=== PATIENT | male | born 1930 | race Caucasian/White ===

== ENCOUNTER → 2016-10-01 | Outpatient (CLI) | payer MEDICARE, OTHER ==
--- OUTSIDE RECORDS SUMMARY | 2016-10-01 09:11 | XMS REPORT | Continuity of Care Document ---
Author Author [facility] Organization [facility] Address Unknown Phone Unavailable Care Team Providers Care Laminating Machine Offbearer Name Role Phone Chan Watson PCP [phone] Source Comments Some departments are not documenting in the electronic medical record. If you do not see the information that you expected, contact Release of Information in the Health Information Management department at [phone] for further assistance in locating additional records.[facility] Active Allergies and Adverse Reactions Allergen Noted Date Severity Reactions Comments Bactrim 07/11/2016 Low VOMITING Ciprofloxacin 07/12/2016 Low VOMITING Current Medications Prescription Sig. Disp. Refills Start End Date Status Date levothyroxine (SYNTHROID) Take 25 mcg by mouth Active 25 mcg tablet daily 30 minutes before breakfast. finasteride (PROSCAR) 5 Take 5 mg by mouth daily. Active mg tablet insulin glargine (TOUJEO Inject 25 Units under the Active SOLOSTAR) 300 unit/mL skin daily. (1.5 mL) injectable insulin aspart (NOVOLOG Inject 2 Units under the Active FLEXPEN) 100 unit/mL skin daily. injection PEN vitamins, multi Take 1 Tab by mouth Active w/minerals 27-0.4 mg tab daily. cranberry fruit Chew 1 Tab by mouth twice Active concentrate (AZO daily. CRANBERRY) 250 mg chew aspirin 81 mg chewable Chew 81 mg by mouth Active tablet daily. Take with food. rOPINIRole (REQUIP) 2 mg Take 2 mg by mouth at Active tablet bedtime daily. tamsulosin (FLOMAX) 0.4 Take 0.4 mg by mouth Active mg capsule daily. Do not crush, chew or open capsules. Take 30 minutes following the same meal each day. simvastatin (ZOCOR) 40 mg Take 40 mg by mouth at Active tablet bedtime daily. acetaminophen/codeine Take 1 Tab by mouth at Active (TYLENOL #3) 300/30 mg bedtime as needed for tablet Pain. Max of 4,000 mg of acetaminophen in 24 hours. prednisone (DELTASONE) 50 Take 2 Tabs by mouth 2 Tab 0 07/24/20 Active mg tablet every 24 hours. 16 allopurinol (ZYLOPRIM) Take 1 Tab by mouth 30 Tab 0 07/23/20 Active 300 mg tablet daily. Take with food. 16 polyethylene glycol 3350 Take 2 Packets by mouth 12 Each 07/23/20 Active (MIRALAX) 17 g packet daily as needed. 16 senna/docusate Take 2 Tabs by mouth 0 07/23/20 Active (SENOKOT-S) 8.6/50 mg daily. [address] Take 1 Tab by mouth 30 Tab 0 07/23/20 Active (PROTONIX) 40 mg tablet daily. 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) 07/11/2016 Hypothyroid 07/11/2016 H/O urinary retention 07/11/2016 Urinary tract infection without hematuria 07/11/2016 Hydronephrosis with infection 07/11/2016 Diarrhea 07/11/2016 Most Recent Encounters Date Type Specialty Providers Description 08/02/2016 Documentation Oncology Ada Gonzalez DO 07/24/2016 [facility] Oncology Adeel Ruiz MD Encounter 07/19/2016 [facility] Radiology Vanita Stern MD Encounter Denny Flores RN Lind, Ashley Lemons, Steven, MD 07/17/2016 [facility] Radiology Monica Mccarthy APRN Canceled (Other) Encounter 07/17/2016 [facility] Radiology Vanita Stern MD Encounter Sj Weinstein MD Couch, Heather A, RN 07/15/2016 Screening Form 07/11/2016 [facility] Hematology and Oncology Sophia Botello MD Retroperitoneal mass - Encounter Britta Pond MD 07/23/2016 Eyad Mckoy MD Zelalem, Peniel, MD Yacoub, Abdulraheem, MD Fleming, Allan, MD Social History Tobacco Use Types Packs/Day Years Used Date Former Smoker Alcohol Use Drinks/Week oz/Week Comments No Last Filed Vital Signs Vital Sign Reading Time Taken Blood Pressure 139/73 07/24/2016 9:54 AM TELEGRAPH PRINTER MECHANIC Pulse 85 07/24/2016 9:54 AM TELEGRAPH PRINTER MECHANIC Temperature 36.4 C (97.5 F) 07/24/2016 9:54 AM TELEGRAPH PRINTER MECHANIC Respiratory Rate 14 07/24/2016 9:54 AM TELEGRAPH PRINTER MECHANIC Height 1.778 m (5' 10") 07/18/2016 2:48 PM TELEGRAPH PRINTER MECHANIC Weight 81 kg (178 lb 9.2 oz) 07/18/2016 2:48 PM TELEGRAPH PRINTER MECHANIC Body Mass Index 25.62 07/18/2016 2:48 PM TELEGRAPH PRINTER MECHANIC Oxygen Saturation 98% 07/24/2016 9:54 AM TELEGRAPH PRINTER MECHANIC Plan of Care Health Maintenance Due Date Last Done Comments Physical (Comprehensive) 02/10/1939 Exam Pertussis Vaccine 02/10/1943 Tetanus Vaccine 02/10/1949 Shingles Vaccine 1992 Prevnar/Pneumovax (#1) 02/10/1997 Influenza Vaccine 03/28/2016 Procedures from Last 3 Months Procedure Name Priority Date/Time Associated Diagnosis Comments ECG-SCAN 07/25/2016 Results for this 1:58 PM TELEGRAPH PRINTER MECHANIC procedure are in the results section. CONSULT IV THERAPY TEAM Routine 07/20/2016 3:42 PM TELEGRAPH PRINTER MECHANIC ECG UNCONFIRMED-SCAN 07/12/2016 Results for this 10:13 AM TELEGRAPH PRINTER MECHANIC procedure are in the results section. Results from Last 3 Months CYTOGENETICS SCAN (07/26/2016 3:51 PM) Narrative Ordered by an unspecified provider. ECG-SCAN (07/25/2016 1:58 PM) Narrative Ordered by an unspecified provider. POC GLUCOSE (07/24/2016 10:01 AM)Only the most recent of 64 results within the time period is included. Component Value Range Glucose, POC 246 (H) 70-100 MG/DL PHOSPHORUS (07/23/2016 2:45 AM)Only the most recent of 12 results within the time period is included. Component Value Range Phosphorus 3.1 2.0-4.0 MG/DL Specimen Blood LDH-LACTATE DEHYDROGENASE (07/23/2016 2:45 AM)Only the most recent of 12 results within the time period is included. Component Value Range Lactate Dehydrogenase 406 (H) 100-210 U/L Specimen Blood URIC ACID (07/23/2016 2:45 AM)Only the most recent of 12 results within the time period is included. Component Value Range Uric Acid 3.8 (L) 4.0-8.0 MG/DL Specimen Blood COMPREHENSIVE METABOLIC PANEL (07/23/2016 2:45 AM)Only the most recent of 13 results within the time period is included. Component Value Range Sodium 134 (L) 137-147 MMOL/L Potassium 4.1 3.5-5.1 MMOL/L Chloride 100 98-110 MMOL/L Glucose 125 (H) 70-100 MG/DL Blood Urea Nitrogen 37 (H) 7-25 MG/DL Creatinine 1.51 (H) 0.4-1.24 MG/DL Calcium 8.9 8.5-10.6 MG/DL Total Protein 5.9 (L) 6.0-8.0 G/DL Total Bilirubin 0.3 0.3-1.2 MG/DL Albumin 3.0 (L) 3.5-5.0 G/DL Alk Phosphatase 51 25-110 U/L AST (SGOT) 17 7-40 U/L CO2 28 21-30 MMOL/L ALT (SGPT) 11 7-56 U/L Anion Gap 6 3-12 eGFR Non 44 (L)Comment: >60 mL/min The eGFR is not validated for use in drug dosing adjustments. Continue to use estimated creatinine clearance per dosing reference text. Please contact the Clinical Pharmacist for questions. eGFR 54 (L)Comment: >60 mL/min The eGFR is not validated for use in drug dosing adjustments. Continue to use estimated creatinine clearance per dosing reference text. Please contact the Clinical Pharmacist for questions. Specimen Blood CBC AND DIFF (07/23/2016 2:45 AM)Only the most recent of 13 results within the time period is included. Component Value Range White Blood Cells 11.1 (H) 4.5-11.0 K/UL RBC 3.30 (L) 4.4-5.5 M/UL Hemoglobin 9.9 (L) 13.5-16.5 GM/DL Hematocrit 29.5 (L) 40-50 % MCV 89.3 80-100 FL MCH 30.1 26-34 PG MCHC 33.7 32.0-36.0 G/DL RDW 13.9 11-15 % Platelet Count 320 150-400 K/UL MPV 7.3 7-11 FL Neutrophils 93 (H) 41-77 % Lymphocytes 4 (L) 24-44 % Monocytes 3 (L) 4-12 % Eosinophils 0 0-5 % Basophils 0 0-2 % Absolute Neutrophil Count 10.30 (H) 1.8-7.0 K/UL Absolute Lymph Count 0.40 (L) 1.0-4.8 K/UL Absolute Monocyte Count 0.40 0-0.80 K/UL Absolute Eosinophil Count 0.00 0-0.45 K/UL Absolute Basophil Count 0.00 0-0.20 K/UL Specimen Blood VRE SCREEN (07/22/2016 9:30 PM) Component Value Range Battery Name VRE SCREEN Specimen Description PERIRECTAL SWAB Special Requests NONE Culture NO VRE ISOLATED Report Status FINAL 07/24/2016 Specimen Perirectal Swab MAGNESIUM (07/20/2016 4:24 AM)Only the most recent of 10 results within the time period is included. Component Value Range Magnesium 2.0 1.6-2.6 mg/dL Specimen Blood IR CENTRAL VENOUS CATHETER (07/19/2016 5:01 PM) Impressions IMPRESSION:Successful image guided placement of a right internal jugular vein chest port as described above. Approved by Earl Bonds M.D. on 07/19/2016 7:07 PM By my electronic signature, I attest that I have personally reviewed the images for this examination and formulated the interpretations and opinions expressed in this report Finalized by Jose Miguel Case M.D. on 07/19/2016 7:09 PM. Dictated by Earl Bonds M.D. on 07/19/2016 7:06 PM. 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 The risks, benefits, and alternatives to the procedure and sedation were explained, and written informed consent obtained. With patient in the supine position, the patient's right neck and upper chest were prepped and draped in the usual sterile fashion. Ultrasound of the right internal jugular vein was performed demonstrating patency.The skin and subcutaneous tissues overlying the vein were infiltrated with 2% Lidocaine without epinephrine. Under ultrasound guidance, the right internal jugular vein was accessed with a micropuncture needle. Needle entering the vessel was documented and an ultrasound imaged was saved and sent to PACS.A 0.018 wire was advanced through the needle into the vein. The needle was exchanged for a 5 Mauritian coaxial dilator. Attention was turned to the creation of a subcutaneous pocket and tunnel.2% Lidocaine with epinephrine were infiltrated on the chest wall along a tract caudal and lateral to the initial venotomy site.An incision was made and a pocket was bluntly dissected. The pocket was copiously irrigated with sterile normal saline.The tunneling tool was passed and the catheter was pulled through the initial venotomy site. The catheter was cut to length and attached to the port reservoir. The introducer of the coaxial catheter was removed and a 0.035" Amplatz wire was passed into the IVC. The micropuncture sheath was exchanged for a peel a way. The catheter was advanced through the sheath and positioned centrally using fluoroscopy.The sheath was removed. The venotomy site was closed with Dermabond.The pocket was closed with three interrupted deep sutures with 2-0 Vicryl followed by Dermabond. The patient tolerated the procedure well and remained in stable condition throughout the stay in the angiography suite.The catheter port was flushed, heparinized, and a sterile dressing was applied. FINDINGS: 1. Patent right internal jugular vein by ultrasound.Needle entry documented , and an ultrasound image was saved to PACS. 2. Catheter tip is appropriately placed in the proximal right atrium. 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 Overlapping portions were non leslie and I was immediately available. I interpret the critical and leslie portion of this procedure to have been needle access. The risks, benefits, and alternatives to the procedure and sedation were explained, and written informed consent obtained. With patient in the supine position, the patient's right neck and upper chest were prepped and draped in the usual sterile fashion. Ultrasound of the right internal jugular vein was performed demonstrating patency. The skin and subcutaneous tissues overlying the vein were infiltrated with 2% Lidocaine without epinephrine. Under ultrasound guidance, the right internal jugular vein was accessed with a micropuncture needle. Needle entering the vessel was documented and an ultrasound imaged was saved and sent to PACS. A 0.018 wire was advanced through the needle into the vein. The needle was exchanged for a 5 Mauritian coaxial dilator. Attention was turned to the creation of a subcutaneous pocket and tunnel. 2% Lidocaine with epinephrine were infiltrated on the chest wall along a tract caudal and lateral to the initial venotomy site. An incision was made and a pocket was bluntly dissected. The pocket was copiously irrigated with sterile normal saline. The tunneling tool was passed and the catheter was pulled through the initial venotomy site. The catheter was cut to length and attached to the port reservoir. The introducer of the coaxial catheter was removed and a 0.035" Amplatz wire was passed into the IVC. The micropuncture sheath was exchanged for a peel a way. The catheter was advanced through the sheath and positioned centrally using fluoroscopy. The sheath was removed. The venotomy site was closed with Dermabond. The pocket was closed with three interrupted deep sutures with 2-0 Vicryl followed by Dermabond. The patient tolerated the procedure well and remained in stable condition throughout the stay in the angiography suite. The catheter port was flushed, heparinized, and a sterile dressing was applied. FINDINGS: 1. Patent right internal jugular vein by ultrasound. Needle entry documented, and an ultrasound image was saved to PACS. 2. Catheter tip is appropriately placed in the proximal right atrium. IMPRESSION IMPRESSION: Successful image guided placement of a right internal jugular vein chest port as described above. Approved by Earl Bonds M.D. on 07/19/2016 7:07 PM By my electronic signature, I attest that I have personally reviewed the images for this examination and formulated the interpretations and opinions expressed in this report Finalized by Jose Miguel Case M.D. on 07/19/2016 7:09 PM. Dictated by Earl Bonds M.D. on 07/19/2016 7:06 PM. HEPATITIS PANEL, ACUTE (07/19/2016 5:43 AM) Component Value Range Hepatitis A IgM NEG Anti HBc IgM NEG HBsAg NEG Anti HCV NEG Specimen Blood 2-D + DOPPLER ECHOCARDIOGRAM (07/18/2016 2:47 PM) Component Value Range BSA 2 m2 ECHO EF 60 % Referring Provider Chan Gravely LVIDD 4.0 4.2-5.9 cm LVIDS 2.6 cm IVS 1.2 0.6-1.0 cm PW 1.2 0.6-1.0 cm FS 35.00 28-44 % EF 59.50 % LA size 3.4 3.0-4.0 cm LA volume 33.0 18-58 mL Left Atrium Index 16.50 10-32 Right Atrial Area 10.0 cm2 (<=18) Right Atrial Major 4.0 cm (<=5.3) Dimension Right Atrial Minor 2.9 cm (<=4.4) Dimension Sinus 3.3 2.1-3.5 cm AV peak velocity 1.1 m/s TV rest pulmonary artery N/A mmHg pressure E/A ratio 0.05 TDI e' 0.060 m/s E/E' ratio 0.82 MV Peak E Mike PW 0.049 m/s MV Peak A Mike 1.000 m/s Narrative LVEF=60%. Normal left ventricular size and systolic function. No regional wall motion abnormalities. Right ventricular size and function are normal. Normal chamber dimensions. Pulmonic valve not well visualized otherwise unremarkable valve structures. No significant valvular stenosis or regurgitation by Doppler studies. No pericardial effusion. Unable to estimate PA systolic pressure with this study. There are no previous studies available for comparison. CHROMOSOMES FISH DNA PROBE (07/17/2016 11:40 AM) Component Value Range Chromosomes Fish DNA SEE OCEANIC SCIENCES PROFESSOR FOR REPORT Probe SURGICAL PATHOLOGY (07/17/2016 11:40 AM) Component Value Range PATHOLOGY REPORT [facility] [email or web address] Fabienne Mclean MD, PhD, Director of Anatomic Pathology Department of Pathology and Laboratory Medicine [address] [place] [phone] Surgical Pathology Office: [phone] SURGICAL PATHOLOGY REPORT NAME: RODRICK GALLEGOS SURG PATH #: [id number] MR #: [id number] SPECIMEN CLASS: SR BILLING #: [id number] ALT ID #: LOCATION: [facility] DATE OF PROCEDURE: 07/17/2016 AGE: 86 SEX: M DATE RECEIVED: 07/17/2016 : 1930 TIME RECEIVED: 11:40 PHYSICIAN: VANITA STERN MD DATE OF REPORT: 07/19/2016 COPY TO: DATE OF PRINTIN07/19/2016 ################################################## ###################### Final Diagnosis: A. 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 See comment. Comment: The core needle biopsy showed a diffuse pattern of lymphocytes. Due to the nature of this core needle biopsy we cannot evaluate the architecture or rule out possible high grade lymphoma. Immunohistochemical stains performed on the block A1 show the atypical lymphocytes are positive for CD10, CD20, bcl-2, bcl-6 and c-myc. They are negative for CD3, CD5 and CD21. In situ hybridization for EBV performed on the block A1 is negative. Ki-67 proliferation index is about 20%, supporting the above diagnosis. Fluorescence in situ hybridization (FISH) study for c-myc, bcl-2 and bcl-6 are pending and will be reported in addendum. Please also see concurrent flow cytometry report ([id number]) which reveals B cell lymphoma. Pursuant to the [employer] at the [facility] Pathology Department, selected slides from this case have been concurrently reviewed by the following pathologist: Dr. Reyna Hebert who agrees with the final diagnosis. Attestation: By this signature, I attest that I have personally formulated the final interpretation expressed in this report and that the above diagnosis is based upon my examination of the slides and/or other material indicated in this report. +++Electronically Signed Out By Herman German MD, Attending Physician+++ /07/17/2016 Interpreted by: Wendy Hassan MD PhD, Attending Physician Tri Yoo MD, PhD 07/19/2016 ################################################## ###################### Material Received: A: retroperitoneal mass History: 86-year-old male with a history of retroperitoneal mass concerning for lymphoma. Gross Description: A. Received in formalin, labeled with the patient's name and "retroperitoneal mass" is a negron-white cylindrical core of soft tissue measuring 0.9 cm in length by 0.2 cm in diameter. The specimen Is entirely submitted in cassette A1. ([facility]) [facility]/07/17/2016 Tri Yoo MD, PhD If immunohistochemical stains and/or in situ hybridization are cited in this report, the performance characteristics were determined by the Department of Pathology and Laboratory Medicine of the [facility] ([employer] [facility]) in compliance with CLIA'88 regulations. Some of these tests rely on the use of "analyte specific reagents" and are subject to specific labeling requirements by the FDA. Known positive and negative control tissues demonstrate appropriate staining. This testing was developed by the Department of Pathology and Laboratory Medicine of the [facility]. It has not been cleared or approved by the FDA. The FDA has determined that such clearance or approval is not necessary. CT GUIDE NEEDLE PLACEMENT (07/17/2016 11:24 AM) Impressions 1. Successful CT-guided core biopsy of left retroperitoneal mass. I, Sj Weinstein M.D., the attending radiologist, was present for the procedure, personally reviewed the images, and formulated the interpretations and opinions expressed in this report. @TT Finalized by Sj Weinstein M.D. on 07/19/2016 8:59 AM. Dictated by Sj Weinstein M.D. on 07/19/2016 8:[address] GUIDED BIOPSY OF left retroperitoneal mass CLINICAL HISTORY:Left retroperitoneal mass RADIOLOGIST:Sj Weinstein M.D. MEDICATIONS:2% lidocaine: 5 mL;Versed: 2 mg IV; Fentanyl: 75 mcg IV TECHNIQUE/FINDINGS: A brief history and physical was obtained and appropriate imaging was reviewed. The patient was provided an explanation of the procedure including risks and benefits. Informed written consent was then obtained. The patient was placed in prone position on the CT table. Limited scans through the retroperitoneum were done to identify the large soft tissue mass. The patient's skin was marked with ink at the appropriate entry site. The entry site was then prepped and draped in the usual sterile fashion. Lidocaine was then injected in the subcutaneous tissues at this site. Position of the lesion was confirmed by CT measurements. A 10 cm 17 gauge Temno introducer needle was then advanced into the lesion and placement was confirmed by CT. 3 separate core biopsies were then obtained using an 18-gauge Temno needle and submitted in normal saline and formalin for surgical pathology. A small amount of gelfoam slurry was injected for hemostasis prior to removal of the introducer needle.Limited post procedure CT scan demonstrates no evidence of post biopsy complication.The patient tolerated the procedure well and left the department in stable condition. Procedure Note Interface, Radiant Results - FriJul 19, 2016 9:03 [address]APH PRINTER MECHANIC [address] GUIDED BIOPSY OF left retroperitoneal mass CLINICAL HISTORY: Left retroperitoneal mass RADIOLOGIST: Sj Weinstein M.D. MEDICATIONS: 2% lidocaine: 5 mL; Versed: 2 mg IV; Fentanyl: 75 mcg IV TECHNIQUE/FINDINGS: A brief history and physical was obtained and appropriate imaging was reviewed. The patient was provided an explanation of the procedure including risks and benefits. Informed written consent was then obtained. The patient was placed in prone position on the CT table. Limited scans through the retroperitoneum were done to identify the large soft tissue mass. The patient's skin was marked with ink at the appropriate entry site. The entry site was then prepped and draped in the usual sterile fashion. Lidocaine was then injected in the subcutaneous tissues at this site. Position of the lesion was confirmed by CT measurements. A 10 cm 17 gauge Temno introducer needle was then advanced into the lesion and placement was confirmed by CT. 3 separate core biopsies were then obtained using an 18-gauge Temno needle and submitted in normal saline and formalin for surgical pathology. A small amount of gelfoam slurry was injected for hemostasis prior to removal of the introducer needle. Limited post procedure CT scan demonstrates no evidence of post biopsy complication. The patient tolerated the procedure well and left the department in stable condition. IMPRESSION 1. Successful CT-guided core biopsy of left retroperitoneal mass. I, Sj Weinstein M.D., the attending radiologist, was present for the procedure, personally reviewed the images, and formulated the interpretations and opinions expressed in this report. @TT Finalized by Sj Weinstein M.D. on 07/19/2016 8:59 AM. Dictated by Sj Weinstein M.D. on 07/19/2016 8:59 AM. LEUKEMIA/LYMPHOMA PANEL FLUID/TISSUE (07/17/2016 11:10 AM) Component Value Range Leuk/Lymph Interpretation SEE PATHOLOGY REPORT Specimen/LLM retroperitoneal mass FLOW CYTOMETRY (07/17/2016 11:09 AM) Component Value Range PATHOLOGY REPORT [facility] [email or web address] Reyna Hebert MD, Director of Clinical Laboratory Andrew Painter MD, Director of Flow Cytometry Laboratory Department of Pathology and Laboratory Medicine [address] [place] [phone] Surgical Pathology Office: [phone] FLOW CYTOMETRY REPORT NAME: RODRICK GALLEGOS SURG PATH #: [id number] MR #: [id number] SPECIMEN CLASS: LC BILLING #: [id number] ALT ID #: LOCATION: [facility] DATE OF PROCEDURE: 07/17/2016 AGE: 86 SEX: M DATE RECEIVED: 07/17/2016 : 1930 TIME RECEIVED: 11:48 PHYSICIAN: VANITA STERN MD DATE OF REPORT: 07/18/2016 COPY TO: MD VANITA ABEBE MD DATE OF PRINTIN07/18/2016 Material Received: A: Retroperitoneal mass History: 86-year-old male with a history of retroperitoneal mass. ################################################## ###################### Final Diagnosis: Retroperitoneal mass, flow cytometry: B cell lymphoma, see interpretation. Interpretation: Lymphocytes comprise 99% of total events. The majority of lymphocytes are B cells that are positive for CD10, CD19, CD20, CD5 (dim), surface kappa light chain, FMC7, and CD38, and negative for CD200, CD34, and T-cell markers. 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 The immunophenotypic pattern is consistent with a variety of entities, including follicular lymphoma, diffuse large B cell lymphoma, Burkitt lymphoma, and possibly other B cell neoplasm subtypes. Morphological correlation is recommended. Co-expression of dim CD5 is noted, this may be due to artifact. Please correlate with morphology ([id number]) to further investigate this. Attestation: By this signature, I attest that I have personally formulated the final interpretation expressed in this report and that the above diagnosis is based upon my examination of the slides and/or other material indicated in this report. +++Electronically Signed Out By+++ bad/07/18/2016 Interpreted by: Herman German MD, Attending Physician ERIK Hand, MPH, M.D. Fellow 07/18/2016 ################################################## ###################### Lab Data: Flow Cytometry - Lymphoma Panel B Cell Associated Markers (% Positive Cells): CD19=87; CD20=87; CD23=1; [place]=84; Lambda=0; [place]:Lambda ratio=n/a T Cell Associated Markers (% Positive Cells): CD2=10; CD3=4; CD4=3; CD5=10; CD7=8; CD8=9 CD4:CD8 ratio=0.4 Miscellaneous Markers (% Positive Cells): CD10=86; CD34=0; CD38=94; CR99=301; CD56=1; FMC7=82; SL744=2 Cell Viability (%): 96 Number of Cells Analyzed: 10,000 Total Number of Markers: 23 Summary of Marker Combinations: [place]/Lambda/5/10/19/45/38/20; FMC7/23/5/34/200 /45/19; 2/7/5/3/4/45/56/8 This test was developed and its performance characteristics determined by the [facility]. It has not been cleared or approved by the U.S. Food and Drug Administration (FDA). The FDA has determined that such clearance or approval is not necessary. ABD ACUTE COMPLETE W PA CHEST (07/15/2016 2:30 PM) Impressions 1. Moderate left and small right pleural effusion with subjacent compressive atelectasis. 2. No evidence of free intraperitoneal air or mechanical bowel obstruction. 3. Mild amount of fecal material about the transverse and descending colon with moderate amount of fecal material about the rectal vault. Finalized by Mat Neves M.D. on 07/15/2016 3:14 PM. Dictated by Mat Neves M.D. on 07/15/2016 3:11 PM. Narrative Acute abdominal series Clinical history: Diarrhea. History of urinary retention. Abdominal pain with retroperitoneal mass. No prior studies are available for direct comparison. Correlation is made with CTAC images from PET/CT performed same day. Findings: Upright AP chest demonstrates that the heart is normal in size. No evidence of pulmonary venous congestion is seen. Moderate left and small right pleural effusion is identified with subjacent compressive atelectasis. No pneumothorax is seen. Tortuous thoracic aorta is appreciated. Thoracic spondylosis is noted. Upright and supine views of the abdomen do not show any evidence of free intraperitoneal air. No significant air-fluid levels are identified about the bowel loops. The bowel gas pattern is within normal limits without evidence of mechanical bowel obstruction. Mild amount of fecal material is noted about the transverse and descending colon with moderate amount of fecal material overlying the rectal vault. Thoracolumbar spondylosis is identified. 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 History of urinary retention. Abdominal pain with retroperitoneal mass. No prior studies are available for direct comparison. Correlation is made with CTAC images from PET/CT performed same day. Findings: Upright AP chest demonstrates that the heart is normal in size. No evidence of pulmonary venous congestion is seen. Moderate left and small right pleural effusion is identified with subjacent compressive atelectasis. No pneumothorax is seen. Tortuous thoracic aorta is appreciated. Thoracic spondylosis is noted. Upright and supine views of the abdomen do not show any evidence of free intraperitoneal air. No significant air-fluid levels are identified about the bowel loops. The bowel gas pattern is within normal limits without evidence of mechanical bowel obstruction. Mild amount of fecal material is noted about the transverse and descending colon with moderate amount of fecal material overlying the rectal vault. Thoracolumbar spondylosis is identified. IMPRESSION 1. Moderate left and small right pleural effusion with subjacent compressive atelectasis. 2. No evidence of free intraperitoneal air or mechanical bowel obstruction. 3. Mild amount of fecal material about the transverse and descending colon with moderate amount of fecal material about the rectal vault. Finalized by Mat Neves M.D. on 07/15/2016 3:14 PM. Dictated by Mat Neves M.D. on 07/15/2016 3:11 PM. NM PET SCAN TORSO (SKULL-THIGHS) (07/15/2016 10:35 AM) Impressions 1. Extensive hypermetabolic lymphadenopathy within the neck, chest, retroperitoneum, and pelvis, consistent with Deauville 5 lymphomatous involvement. 2. Hypermetabolic osseous and muscular metastatic disease. 3. Increased FDG uptake within the inferior right and left thyroid lobes, which may represent lymphomatous involvement either within or adjacent to the thyroid. However separate thyroid malignancy cannot be excluded. 4. Moderate left and small right pleural effusions with adjacent atelectasis. Approved by Shanon Pichardo D.O. on 07/15/2016 11:57 AM By my electronic signature, I attest that I have personally reviewed the images for this examination and formulated the interpretations and opinions expressed in this report Finalized by Michel Blair M.D. on 07/15/2016 12:28 PM. Dictated by Shanon Pichardo D.O. on 07/15/2016 10:54 AM. Narrative PET/CT NECK, CHEST, ABDOMEN AND PELVIS CLINICAL HISTORY: 86-year-old male. Retroperitoneal mass. Concern for lymphoma. COMPARISON: CT abdomen/pelvis 07/11/2016. RADIOPHARMACEUTICAL: 17.6 mCi IV Fluorine-18 fluorodeoxyglucose (FDG) BLOOD GLUCOSE LEVEL AT THE TIME OF RADIOPHARMACEUTICAL ADMINISTRATION: 141 mg / dL TECHNIQUE: Routine PET images ranging from the base of the skull to the upper thighs were obtained 60 minutes after IV administration of F-18 Fluorodeoxyglucose (FDG). PET images were reviewed in standard orthogonal projections. Low dose non- contrast CT imaging was performed for attenuation correction and localization purposes. FINDINGS: Mean blood pool SUV 1.63, maximum 2.41. Mean hepatic SUV 1.9, maximum 3.65. Physiologic uptake of F-18 Fluorodeoxyglucose (FDG) tracer is seen within the brain, heart, kidneys, bladder, and bowel. Head / Neck: Left supraclavicular hypermetabolic lymphadenopathy. Computer Publisher lymph node measures 1.7 x 3.2 cm (CT image 73), with maximum SUV of 17. Activity is noted within the inferior portions of the bilateral thyroid lobes, greater on the right with maximum SUV of 5.4 (CT image 78). No discrete hypodense thyroid nodule is identified on CT images. Chest: Hypermetabolic prevascular lymph node is demonstrated measuring 1.1 x 1.9 cm ( CT image 86) with maximum SUV of 6.6. Hypermetabolic retrocrural lymphadenopathy is also noted measuring 1.0 x 2.7 cm (CT image 128), with maximum SUV of 11. Moderate left and small right pleural effusions are present with adjacent atelectasis. Abdomen / Pelvis: Redemonstration of confluent, masslike soft tissue thickening, stranding and nodularity throughout the retroperitoneum, with greatest involvement of the left perirenal fascia, perinephric space and aortocaval space. The soft tissue encasement extends superiorly to the level of the diaphragm and inferiorly to the level of the iliac vasculature. Maximum SUV of 19 just anterior to the inferior left kidney. Hypermetabolic presacral, left external iliac and right inguinal lymphadenopathy is also noted. Computer Publisher presacral lymph node measures up to 1.4 cm (CT image 223), with maximum SUV of 9.4. Osseous Structures: Hypermetabolic activity is demonstrated within the first rib head with maximum SUV of 8. Mild FDG uptake is also demonstrated within the posterior left iliac bone with maximum SUV of 4.1 (CT image 212). CT findings: There is prominence of the ventricles and subarachnoid spaces, consistent with mild generalized volume loss. Moderate aortoiliac calcification. Mild abdominal aortic ectasia. There is a peripherally calcified nodule within the central mesentery (CT image 149) which is poorly evaluated in the absence of IV contrast. Extremities: Hypermetabolic small nodule noted within the posterior left upper arm musculature with maximum SUV of 4.9 (CT image 51). 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 Retroperitoneal mass. Concern for lymphoma. COMPARISON: CT abdomen/pelvis 07/11/2016. RADIOPHARMACEUTICAL: 17.6 mCi IV Fluorine-18 fluorodeoxyglucose (FDG) BLOOD GLUCOSE LEVEL AT THE TIME OF RADIOPHARMACEUTICAL ADMINISTRATION: 141 mg / dL TECHNIQUE: Routine PET images ranging from the base of the skull to the upper thighs were obtained 60 minutes after IV administration of F-18 Fluorodeoxyglucose (FDG). PET images were reviewed in standard orthogonal projections. Low dose non- contrast CT imaging was performed for attenuation correction and localization purposes. FINDINGS: Mean blood pool SUV 1.63, maximum 2.41. Mean hepatic SUV 1.9, maximum 3.65. Physiologic uptake of F-18 Fluorodeoxyglucose (FDG) tracer is seen within the brain, heart, kidneys, bladder, and bowel. Head / Neck: Left supraclavicular hypermetabolic lymphadenopathy. Computer Publisher lymph node measures 1.7 x 3.2 cm (CT image 73), with maximum SUV of 17. Activity is noted within the inferior portions of the bilateral thyroid lobes, greater on the right with maximum SUV of 5.4 (CT image 78). No discrete hypodense thyroid nodule is identified on CT images. Chest: Hypermetabolic prevascular lymph node is demonstrated measuring 1.1 x 1.9 cm ( CT image 86) with maximum SUV of 6.6. Hypermetabolic retrocrural lymphadenopathy is also noted measuring 1.0 x 2.7 cm (CT image 128), with maximum SUV of 11. Moderate left and small right pleural effusions are present with adjacent atelectasis. Abdomen / Pelvis: Redemonstration of confluent, masslike soft tissue thickening, stranding and nodularity throughout the retroperitoneum, with greatest involvement of the left perirenal fascia, perinephric space and aortocaval space. The soft tissue encasement extends superiorly to the level of the diaphragm and inferiorly to the level of the iliac vasculature. Maximum SUV of 19 just anterior to the inferior left kidney. Hypermetabolic presacral, left external iliac and right inguinal lymphadenopathy is also noted. Computer Publisher presacral lymph node measures up to 1.4 cm (CT image 223), with maximum SUV of 9.4. Osseous Structures: Hypermetabolic activity is demonstrated within the first rib head with maximum SUV of 8. Mild FDG uptake is also demonstrated within the posterior left iliac bone with maximum SUV of 4.1 (CT image 212). CT findings: There is prominence of the ventricles and subarachnoid spaces, consistent with mild generalized volume loss. Moderate aortoiliac calcification. Mild abdominal aortic ectasia. There is a peripherally calcified nodule within the central mesentery (CT image 149) which is poorly evaluated in the absence of IV contrast. Extremities: Hypermetabolic small nodule noted within the posterior left upper arm musculature with maximum SUV of 4.9 (CT image 51). IMPRESSION 1. Extensive hypermetabolic lymphadenopathy within the neck, chest, retroperitoneum, and pelvis, consistent with Deauville 5 lymphomatous involvement. 2. Hypermetabolic osseous and muscular metastatic disease. 3. Increased FDG uptake within the inferior right and left thyroid lobes, which may represent lymphomatous involvement either within or adjacent to the thyroid. However separate thyroid malignancy cannot be excluded. 4. Moderate left and small right pleural effusions with adjacent atelectasis. Approved by Shanon Pichardo D.O. on 07/15/2016 11:57 AM By my electronic signature, I attest that I have personally reviewed the images for this examination and formulated the interpretations and opinions expressed in this report Finalized by Michel Blair M.D. on 07/15/2016 12:28 PM. Dictated by Shanon Pichardo D.O. on 07/15/2016 10:54 AM. CULTURE-BLOOD W/SENSITIVITY (07/14/2016 12:00 PM)Only the most recent of 4 results within the time period is included. Component Value Range Battery Name BLOOD CULTURE Specimen Description BLOOD RIGHT FA Special Requests NONE Culture NO GROWTH 5 DAYS Report Status FINAL 07/20/2016 Specimen Blood LEUKOCYTES, FECAL (07/14/2016 9:20 AM) Component Value Range Battery Name FECAL LEUKOCYTES Specimen Description FECES Special Requests NONE Fecal Leukocytes NEGATIVE BY LACTOFERRIN Report Status FINAL 07/14/2016 Specimen Stool - Feces CULTURE-FECES W/SENSITIVITY (07/14/2016 9:20 AM) Component Value Range Battery Name STOOL CULTURE Specimen Description FECES Special Requests NONE Culture NO SALMONELLA, SHIGELLA, CAMPYLOBACTER, AEROMONAS, OR PLESIOMONAS Report Status FINAL 07/17/2016 Specimen Stool - Feces URINALYSIS, MICROSCOPIC (07/13/2016 6:50 PM)Only the most recent of 2 results within the time period is included. Component Value Range WBCs,UA 0-2 0-2 /HPF RBCs,UA 2-10 0-3 /HPF MucousUA TRACE Bacteria,UA FEW (A) NEG-NEG Specimen Urine URINALYSIS DIPSTICK (07/13/2016 6:50 PM)Only the most recent of 2 results within the time period is included. Component Value Range Color,UA YELLOW Turbidity,UA CLEAR CLEAR-CLEAR Specific [place]-Urine 1.018 1.003-1.035 pH,UA 5.0 5.0-8.0 Protein,UA 2+ (A) NEG-NEG Glucose,UA NEG NEG-NEG Ketones,UA NEG NEG-NEG Bilirubin,UA NEG NEG-NEG Blood,UA 2+ (A) NEG-NEG Urobilinogen,UA NORMAL NORM-NORMAL Nitrite,UA NEG NEG-NEG Leukocytes,UA TRACE (A) NEG-NEG Urine Ascorbic Acid, UA POS (A)Comment: NEG-NEG Ascorbic acid is found in various food supplies and dietary supplements, and is reported to cause strong interference with Macroscopic Urinalysis testing for glucose, blood and nitrite, and can result in a false negative result. Specimen Urine BNP (B-TYPE NATRIURETIC PEPTI) (07/13/2016 5:34 PM) Component Value Range B Type Natriuretic 49.0 0-100 PG/ML Peptide Specimen Blood BASIC METABOLIC PANEL (07/13/2016 5:34 PM) Component Value Range Sodium 130 (L) 137-147 MMOL/L Potassium 4.5 3.5-5.1 MMOL/L Chloride 98 98-110 MMOL/L CO2 25 21-30 MMOL/L Anion Gap 7 3-12 Glucose 155 (H) 70-100 MG/DL Blood Urea Nitrogen 35 (H) 7-25 MG/DL Creatinine 2.04 (H) 0.4-1.24 MG/DL Calcium 8.8 8.5-10.6 MG/DL eGFR Non 31 (L)Comment: >60 mL/min The eGFR is not validated for use in drug dosing adjustments. Continue to use estimated creatinine clearance per dosing reference text. Please contact the Clinical Pharmacist for questions. eGFR 38 (L)Comment: >60 mL/min The eGFR is not validated for use in drug dosing adjustments. Continue to use estimated creatinine clearance per dosing reference text. Please contact the Clinical Pharmacist for questions. Specimen Blood SODIUM-URINE RANDOM (07/13/2016 3:07 AM)Only the most recent of 2 results within the time period is included. Component Value Range Sodium, Random 88 MMOL/L Specimen Urine MICROALB/CR RATIO-URINE RANDOM (07/13/2016 3:07 AM) Component Value Range Microalbumin, Random 373.0 (H) <19 MCG/ML Creatinine, Random 164 MG/DL Microalbumin/CR ratio 227.44 (H)Comment: NOTE NEW REFERENCE RANGES <30 ug/ mg Urine Specimen Urine ECG UNCONFIRMED-SCAN (07/12/2016 10:13 AM) Narrative Ordered by an unspecified provider. TSH WITH FREE T4 REFLEX (07/12/2016 4:37 AM) Component Value Range TSH 2.769 0.35-5.00 MCU/ML Specimen Blood LIPID PROFILE (07/12/2016 4:37 AM) Component Value Range Cholesterol 104 <200 MG/DL Triglycerides 110 <150 MG/DL HDL 35 (L) >40 MG/DL LDL 46 <100 MG/DL VLDL 22 MG/DL Non HDL Cholesterol 69Comment: MG/DL Calculated non-HDL Cholesterol (non-HDL-C) indirectly measures LDL-C, Lp(a), IDL-C, and VLDL-C. It is a surrogate marker for Apoprotein B. Non-HDL-C is a more accurate measure of atherogenic particle concentration than LDL-C in patients with hypertriglyceridemia (>200 mg/dL). This calculation is now recommended for evaluation and treatment of coronary heart disease according to the National Cholesterol Education Program Adult Treatment Protocol-III. See Shields et al. Am J. Cardiol. 2008, 101:4678-5867. The "goal" should be less than 130 mg/dL, but will vary according to risk factors. Specimen Blood HEMOGLOBIN A1C (07/12/2016 4:37 AM) Component Value Range Hemoglobin A1C 8.2 (H)Comment: 4.0-6.0 % The ADA recommends that most patients with type 1 and type 2 diabetes maintain an A1c level <7%. Specimen Blood US RENAL BLADDER LTD (07/11/2016 9:36 PM) Impressions 1. Mild left hydronephrosis. 2. Large infiltrative and confluent retroperitoneal process is poorly delineated. Please see the separately dictated current day CT for additional pertinent findings. Approved by Que Arzate M.D. on 07/12/2016 9:05 AM By my electronic signature, I attest that I have personally reviewed the images for this examination and formulated the interpretations and opinions expressed in this report Finalized by Tonja Langley M.D. on 07/12/2016 10:03 AM. Dictated by Que Arzate M.D. on 07/12/2016 8:36 AM. Narrative Renal Ultrasound. Clinical Indication: Abdominal pain. TECHNIQUE: Multiple real-time grayscale sonographic images and color Doppler images were obtained through the urinary system. Comparison: Multiple prior examinations, as well as current day CT. FINDINGS: The kidneys are normal in size with the right measuring up to 13.3 cm in length and the left measuring up to 12.4 cm in length. There is a large, simple appearing cyst arising from the upper pole the right kidney measuring up to 5.7 cm in diameter without abnormal blood flow. There is an additional smaller simple cyst within the lower pole of the right kidney measuring up to 2.0 cm. Mild left hydronephrosis persists. The known confluent and infiltrative retroperitoneal process is poorly delineated. Please see the separately dictated current day CT for additional pertinent findings. The urinary bladder is decompressed about a Melton catheter. 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 Clinical Indication: Abdominal pain. TECHNIQUE: Multiple real-time grayscale sonographic images and color Doppler images were obtained through the urinary system. Comparison: Multiple prior examinations, as well as current day CT. FINDINGS: The kidneys are normal in size with the right measuring up to 13.3 cm in length and the left measuring up to 12.4 cm in length. There is a large, simple appearing cyst arising from the upper pole the right kidney measuring up to 5.7 cm in diameter without abnormal blood flow. There is an additional smaller simple cyst within the lower pole of the right kidney measuring up to 2.0 cm. Mild left hydronephrosis persists. The known confluent and infiltrative retroperitoneal process is poorly delineated. Please see the separately dictated current day CT for additional pertinent findings. The urinary bladder is decompressed about a Melton catheter. IMPRESSION 1. Mild left hydronephrosis. 2. Large infiltrative and confluent retroperitoneal process is poorly delineated. Please see the separately dictated current day CT for additional pertinent findings. Approved by Que Arzate M.D. on 07/12/2016 9:05 AM By my electronic signature, I attest that I have personally reviewed the images for this examination and formulated the interpretations and opinions expressed in this report Finalized by Tonja Langley M.D. on 07/12/2016 10:03 AM. Dictated by Que Arzate M.D. on 07/12/2016 8:36 AM. TOTAL PROTEIN SEP (07/11/2016 8:30 PM) Component Value Range Total Protein 6.1 6.0-8.0 g/dL Specimen Blood ELECTROPHORESIS-SERUM PROTEIN (07/11/2016 8:30 PM) Component Value Range Total Protein-SEP 6.1 6.0-8.0 G/DL Albumin % 50.7 48-68 % Alpha 1 % 6.1 (H) 2-6 % Alpha 2 % 17.8 (H) 5-15 % Beta %,Serum 12.3 9-17 % Gamma % 13.1 9-21 % Interpretation - SEP HYPOALBUMINEMIA Pathologist Signature INTERPRETED BY EVELIA KWONG M.D. By the PATH SIGNATURE ABOVE, I attest that I have personally formulated the final interpretation expressed in this report and that the above diagnosis is based upon my examination of the slides and/or other material indicated in this report. Specimen Blood CREATININE-URINE RANDOM (07/11/2016 8:30 PM) Component Value Range Creatinine, Random 61 MG/DL Specimen Urine EOSINOPHIL STAIN (07/11/2016 8:30 PM) Component Value Range Battery Name EOSINOPHIL STAIN Specimen Description URINE Special Requests NONE Soares's Stain NO EOSINOPHILS SEEN Report Status FINAL 07/12/2016 Specimen Urine CULTURE-URINE W/SENSITIVITY (07/11/2016 8:30 PM) Component Value Range Battery Name URINE CULTURE Specimen Description URINE Special Requests NONE Culture NO GROWTH Report Status FINAL 07/12/[address] ABD/PELV WO CONTRAST (07/11/2016 4:24 PM) Impressions 1. Progression of extensive retroperitoneal masslike soft tissue thickening, with greatest involvement of the left pararenal fascia, perinephric space and aortocaval space. Findings are most compatible with lymphoma. Biopsy recommended. 2. Development of mild left hydronephrosis secondary to encasement of the left ureter by retroperitoneal soft tissue thickening. 3. Development of a small left pleural effusion. Approved by Cherry Kilgore M.D. on 07/11/2016 5:10 PM By my electronic signature, I attest that I have personally reviewed the images for this examination and formulated the interpretations and opinions expressed in this report Finalized by LAKSHMI STEVEN M.D. on 07/11/2016 5:23 PM. Dictated by Cherry Kilgore M.D. on 07/11/2016 4: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 Technique: Multiple contiguous axial CT images were obtained through the abdomen and pelvis without IV contrast. Post processing coronal and sagittal reconstruction images were made from the axial images. IV contrast: None. Bowel contrast:None Comparison: Outside CT abdomen/pelvis from June 12, 2016 FINDINGS: Limited evaluation without the use of IV contrast which includes the viscera and vasculature. Lower Thorax: The heart is normal in size. Calcific coronary artery disease is noted. Small left pleural effusion has developed with patchy bibasilar atelectasis. Liver and Biliary system: The unopacified liver is mildly enlarged without focal lesion. No calcified gallstones are present. Spleen: The unopacified spleen is normal in size. Adrenal Glands and Kidneys: The unopacified right adrenal gland and kidney are unremarkable apart from simple renal cysts. The left adrenal gland is inseparable from extensive retroperitoneal stranding. Progression of left perinephric soft tissue thickening and stranding, with bulky soft tissue now abutting the left renal hilum. There has been development of at least mild left hydronephrosis. The left ureter is inseparable from ill-defined retroperitoneal soft tissue. Pancreas and Retroperitoneum: The unopacified pancreas is atrophic. The body and tail of the pancreas are now engulfed by extensive retroperitoneal soft tissue thickening and stranding. Interval progression of confluent, masslike, soft tissue thickening and bulky soft tissue throughout the retroperitoneum, greatest involving the left pararenal fascia, perinephric space and aortocaval space. Soft tissue encases and elevates the abdominal aorta from the adjacent vertebral bodies and also involves the left psoas. There is new soft tissue thickening extending along the right iliac vasculature, with progression of soft tissue thickening along the left iliac vasculature. Aorta and Major Vessels: The abdominal aorta is mildly ectatic, measuring 2.9 cm in maximal diameter, with moderate aortoiliac atherosclerotic calcification. Bowel, Mesentery and Peritoneal space: The duodenum is encased by retroperitoneal soft tissue thickening. Left retroperitoneal stranding extends to abut the descending colon. The small and large bowel loops are normal in caliber. The appendix is unremarkable. No ascites. Pelvis: The urinary bladder is relatively decompressed with apparent circumferential wall thickening. The prostate gland is mildly enlarged. Abdominal wall and Osseous Structures: No destructive osseous lesion is identified. There is moderate multilevel lumbar spondylosis. 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 Technique: Multiple contiguous axial CT images were obtained through the abdomen and pelvis without IV contrast. Post processing coronal and sagittal reconstruction images were made from the axial images. IV contrast: None. Bowel contrast: None Comparison: Outside CT abdomen/pelvis from June 12, 2016 FINDINGS: Limited evaluation without the use of IV contrast which includes the viscera and vasculature. Lower Thorax: The heart is normal in size. Calcific coronary artery disease is noted. Small left pleural effusion has developed with patchy bibasilar atelectasis. Liver and Biliary system: The unopacified liver is mildly enlarged without focal lesion. No calcified gallstones are present. Spleen: The unopacified spleen is normal in size. Adrenal Glands and Kidneys: The unopacified right adrenal gland and kidney are unremarkable apart from simple renal cysts. The left adrenal gland is inseparable from extensive retroperitoneal stranding. Progression of left perinephric soft tissue thickening and stranding, with bulky soft tissue now abutting the left renal hilum. There has been development of at least mild left hydronephrosis. The left ureter is inseparable from ill-defined retroperitoneal soft tissue. Pancreas and Retroperitoneum: The unopacified pancreas is atrophic. The body and tail of the pancreas are now engulfed by extensive retroperitoneal soft tissue thickening and stranding. Interval progression of confluent, masslike, soft tissue thickening and bulky soft tissue throughout the retroperitoneum, greatest involving the left pararenal fascia, perinephric space and aortocaval space. Soft tissue encases and elevates the abdominal aorta from the adjacent vertebral bodies and also involves the left psoas. There is new soft tissue thickening extending along the right iliac vasculature, with progression of soft tissue thickening along the left iliac vasculature. Aorta and Major Vessels: The abdominal aorta is mildly ectatic, measuring 2.9 cm in maximal diameter, with moderate aortoiliac atherosclerotic calcification. Bowel, Mesentery and Peritoneal space: The duodenum is encased by retroperitoneal soft tissue thickening. Left retroperitoneal stranding extends to abut the descending colon. The small and large bowel loops are normal in caliber. The appendix is unremarkable. No ascites. Pelvis: The urinary bladder is relatively decompressed with apparent circumferential wall thickening. The prostate gland is mildly enlarged. Abdominal wall and Osseous Structures: No destructive osseous lesion is identified. There is moderate multilevel lumbar spondylosis. IMPRESSION 1. Progression of extensive retroperitoneal masslike soft tissue thickening, with greatest involvement of the left pararenal fascia, perinephric space and aortocaval space. Findings are most compatible with lymphoma. Biopsy recommended. 2. Development of mild left hydronephrosis secondary to encasement of the left ureter by retroperitoneal soft tissue thickening. 3. Development of a small left pleural effusion. Approved by Cherry Kilgore M.D. on 07/11/2016 5:10 PM By my electronic signature, I attest that I have personally reviewed the images for this examination and formulated the interpretations and opinions expressed in this report Finalized by LAKSHMI STEVEN M.D. on 07/11/2016 5:23 PM. Dictated by Cherry Kilgore M.D. on 07/11/2016 4:28 PM. LIPASE (07/11/2016 3:05 PM) Component Value Range Lipase 4 (L) 11-82 U/L Specimen Blood TROPONIN-I (07/11/2016 3:05 PM) Component Value Range Troponin-I 0.02 0.0-0.05 NG/ML Specimen Blood PTT (APTT) (07/11/2016 3:05 PM) Component Value Range APTT 26.4 24.0-40.0 SEC Specimen Blood PROTIME INR (PT) (07/11/2016 3:05 PM) Component Value Range INR 1.1 0.8-1.2 Specimen Blood US ABDOMEN EXTERNAL IMAGING (07/04/2016) Narrative This order has been auto finalized and does not contain a result.
--- NOTE | 2016-10-02 10:07 | Diagnostic Imaging Report ---
EXAMINATION: PET/CT. INDICATION: Lymphoma. TECHNIQUE: PET/CT imaging was obtained from the base of the skull through the pelvis after the administration of 15.9 mCi of F-[address] imaging was utilized for localization and attenuation correction purposes. The low energy CT utilized for attenuation correction is not considered to be of high enough spatial resolution to allow in and of itself a separate anatomical analysis. COMPARISON: There are no previous PET/CT examinations available for comparison. The CT abdomen/pelvis exam performed at the [facility] in [place], [place] on 07/11/2016 noted a poorly defined mass lesion interposed between the abdominal aorta and the left kidney. This mass lesion was subsequently biopsied using CT guidance on 07/17/2016. 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 FINDINGS: On this exam, the [place] mass interposed between the aorta and the left kidney is much smaller than noted on the previous study. This mass now measures approximately 4.7 x 5.1 cm in maximum AP and transverse diameters as opposed to 8.7 x 8.8 cm previously. Furthermore, this mass shows only mild hypermetabolic activity with a maximum SUV of only 2.3. There is no other hypermetabolic focus identified to suggest the presence of neoplasm. There is generalized increased uptake throughout the osseous structures however. Most likely this is a response to therapy. The CT images do show that the atelectasis/infiltrate in the left lung base seen on the previous CT exam has diminished significantly. The left pleural effusion noted previously has also resolved. There is still a small amount of atelectasis/infiltrate in the right lung base. This is essentially no different than on the prior exam. IMPRESSION: 1. The [place] mass interposed between the abdominal aorta and the left kidney seen on the previous exam has decreased in size. This mass shows only mild hypermetabolic activity with a maximum SUV of 2.3. 2. There is no other hypermetabolic activity to suggest the presence of neoplasm. 3. The generalized increased uptake throughout the osseous structures is most likely response to therapy. 4. The lung bases do seem better aerated than on the prior exam, particularly the left lung base. However, there is still a small amount of atelectasis/infiltrate in each lower lobe. A 5. These results were discussed with Dr. Villa. Dictated by: Dictated on workstation # [id number]
== END ==
LOC: RAD 09:06
PROVIDERS: ATTEND Internal Medicine Hematology & Oncology
DX: C82.12 Follicular lymphoma grade II, intrathoracic lymph nodes (principal)